=== PATIENT | female | born 1975 | race Caucasian/White ===

== ENCOUNTER 2018-09-19 05:50 | Day surgery (SDC) | payer OTHER ==
[~2018-09-19 05:50] MED LIST: DEPAKOTE ER500 MG; DICY20TA PO; FIORINAL 50-321 EACH; PROTONIX40 MG PO; ZANTAC300 MG PO; ZOFRAN4 MG PO
[2018-09-19] MEDS ORDERED: Tylenol #3 PO (08:49)
[2018-09-19] MEDS ORDERED: DOXYCYCLINE HY100 M2 PO (08:49)
== END 2018-09-19 15:40 | disposition home or self-care (01) ==
LOC: CIR.AMB 05:50
DX: D25.0 Submucous leiomyoma of uterus (principal); N84.0 Polyp of corpus uteri

== ENCOUNTER 2018-09-20 13:41 | Emergency (ER) | payer OTHER ==
[~2018-09-20] VITALS: Ht 157.5 cm; Wt 62.6 kg
[~2018-09-20 13:41] MED LIST changes: +DOXYCYCLINE HY100 M2 PO; +Tylenol #3 PO
== END 2018-09-20 18:20 | disposition home or self-care (01) ==
LOC: ER 13:41
DX: T88.59XA Other complications of anesthesia, initial encounter (principal); G44.40 Drug-induced headache, not elsewhere classified, not intractable